=== PATIENT | female | born 1975 | race Two or more races ===

== ENCOUNTER 2018-07-16 10:45 | Emergency (ER) | payer OTHER ==
[~2018-07-16] VITALS: Ht 157.5 cm; Wt 93.0 kg
[2018-07-16] MEDS ORDERED: SERTRALINE HCL25 MG PO (10:52)
[2018-07-16] MEDS ORDERED: [UNRECOGNIZED DRUG - OTHER] PO (10:53)
== END 2018-07-16 13:52 | disposition home or self-care (01) ==
LOC: ER 10:45
DX: S13.4XXA Sprain of ligaments of cervical spine, initial encounter (principal); S00.83XA Contusion of other part of head, initial encounter; V49.59XA Passenger injured in collision with other motor vehicles in traffic accident, initial encounter; Y93.89 Activity, other specified; Y92.413 State road as the place of occurrence of the external cause; Y99.8 Other external cause status